=== PATIENT | female | born 1955 | race Caucasian/White ===

== ENCOUNTER 2018-09-11 16:45 | Emergency (ER) | payer BC ==
[2018-09-11 17:11] VITALS: BP 112/56
--- NOTE | 2018-09-11 17:25 | UC ---
Eye Complaint HPI - HPI Summary HPI Summary: 63-year-old woman 63-year-old woman comes in with a chief complaint of upper respiratory tract infection symptoms for 5 days. Today she started with right eye redness and drainage. When she's coughing she is bringing up some pus. Also reports some pus he drainage out of the right eye. She does feel like doesn't itch in the upper part of the eye. Denies any foreign body or trauma to the eye. No shortness of breath. She does have rhinorrhea and postnasal drip and also had a sore throat. Throat hurts more she swallows. - History of Current Complaint Chief Complaint: UCRespiratory Stated Complaint: EYE COMPLAINT Time Seen by Provider: 09/11/18 17:14 Pain Intensity: 0 - Allergies/Home Medications Allergies/Adverse Reactions: Allergies Allergy/AdvReac Type Severity Reaction Status Date / Time hydrocodone Allergy Severe Altered Verified 09/11/18 17:08 Mental Status Penicillins Allergy Severe Rash Verified 09/11/18 17:08 PMH/Surg Hx/FS Hx/Imm Hx Previously Healthy: Yes - Surgical History Surgical History: Yes Surgery Procedure, Year, and Place: THIRD DEGREE UTERINE PROLAPSE REPAIR, CERVIX REMOVED - Family History Known Family History: Positive: Non-Contributory - Social History Alcohol Use: None Substance Use Type: None Smoking Status (MU): Never Smoked Tobacco Review of Systems All Other Systems Reviewed And Are Negative: Yes Constitutional: Positive: Negative Skin: Positive: Negative Eyes: Positive: Drainage, Eye Redness ENT: Positive: Sore Throat, Nasal Discharge, Sinus Congestion Respiratory: Positive: Cough Cardiovascular: Positive: Negative Gastrointestinal: Positive: Negative Motor: Positive: Negative Neurovascular: Positive: Negative Musculoskeletal: Positive: Negative Neurological: Positive: Negative Psychological: Positive: Negative Is Patient Immunocompromised?: No Physical Exam Triage Information Reviewed: Yes Appearance: No Pain Distress, Well-Nourished, Ill-Appearing - MILD Vital Signs: Initial Vital Signs Temp 99.6 F 09/11/18 17:05 Pulse 71 09/11/18 17:05 Resp 18 09/11/18 17:05 BP 112/56 09/11/18 17:05 Pulse Ox 97 09/11/18 17:05 Vital Signs Reviewed: Yes Eyes: Positive: Conjunctiva Inflamed - RT, Discharge - RT, Other: - PERRLA/EOMI NO FB SEEN ON EXAM ENT: Positive: Pharyngeal erythema, Nasal congestion, TMs normal Neck: Positive: Supple Respiratory: Positive: Lungs clear, Normal breath sounds, No respiratory distress Cardiovascular: Positive: RRR Musculoskeletal Exam: Normal Musculoskeletal: Positive: Strength Intact, ROM Intact Neurological Exam: Normal Neurological: Positive: Alert, Muscle Tone Normal Psychological Exam: Normal Psychological: Positive: Age Appropriate Behavior Skin Exam: Normal Eye Complaint Course/Dx - Course Course Of Treatment: DISCUSSED VIRAL VERSES BACTERIAL INFECTION AND THE ROLE OF ANTIBIOTICS. THE PATIENT PREFERS TO BE ON ANTIBIOTICS AT THIS TIME. - Differential Dx/Diagnosis Provider Diagnosis: Right conjunctivitis, Upper respiratory infection Discharge - Sign-Out/Discharge Documenting (check all that apply): Patient Departure All imaging exams completed and their final reports reviewed: No Studies - Discharge Plan Condition: Stable Disposition: HOME Prescriptions: Amoxicillin PO (*) [Amoxicillin 875 MG (*)] 875 mg PO BID #20 tab Tobramycin 0.3% OPHTH.BHARGAV* 1 drop RIGHT EYE Q4H #1 btl Patient Education Materials: Upper Respiratory Infection (ED), Conjunctivitis ( ED) Forms: *Work Release Referrals: [facility] [Outside] [facility] [Provider Group] Additional Instructions: FOLLOW UP WITH OPHTHALMOLOGY AND/OR YOUR DOCTOR IF NOT COMPLETELY IMPROVED. GET RECHECKED SOONER IF YOUR CONDITION WORSENS OR ANY QUESTIONS OR CONCERNS. - Billing Disposition and Condition Condition: STABLE Disposition: Home
== END 2018-09-11 17:34 | disposition home or self-care (01) ==
LOC: UCEAST 16:45
DX: H10.9 Unspecified conjunctivitis (principal); J06.9 Acute upper respiratory infection, unspecified; Z88.0 Allergy status to penicillin
CPT/HCPCS: 99202; G0463

== ENCOUNTER 2018-10-08 14:00 | Emergency (ER) | payer BC ==
[2018-10-08 14:12] VITALS: BP 108/66
--- NOTE | 2018-10-08 14:36 | UC ---
Throat Pain/Nasal Fabricio HPI - HPI Summary HPI Summary: Almost 6 week hx f sore throat, like razor blades, which ahs not responded to use of amoxicillin and warm water and salt gargling. Feels fatigued, but this predated the onset of the sore throat. No fever, cough, headache or hx of reflux. Had profuse watery stool one week ago which has decreased over the week. Nausea and one episode of emesis last week. Yesterday took imodium with effect, and has one watery stool today. - History of Current Complaint Chief Complaint: UCRespiratory Stated Complaint: SORE THROAT DIARRHEA Time Seen by Provider: 10/08/18 14:35 Hx Obtained From: Patient ?: No Onset/Duration: Gradual Onset, Lasting Weeks Severity: Moderate Pain Intensity: 10 Cough: None Associated Signs & Symptoms: Positive: Dysphagia, Hoarseness - has resolved. - Epiglottits Risk Factors Epiglottis Risk Factors: Negative - Allergies/Home Medications Allergies/Adverse Reactions: Allergies Allergy/AdvReac Type Severity Reaction Status Date / Time hydrocodone Allergy Severe Altered Verified 10/08/18 14:12 Mental Status Penicillins Allergy Severe Rash Verified 10/08/18 14:12 Home Medications: Home Medications NK [No Home Medications Reported] 10/08/18 [History Confirmed 10/08/18] PMH/Surg Hx/FS Hx/Imm Hx Previously Healthy: Yes - no regular medical care, no illnesses. 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 Negative: Dental Pain, Ear Ache, Nasal Discharge, Sinus Congestion Respiratory: Negative: Shortness Of Breath, Cough Gastrointestinal: Positive: Diarrhea Genitourinary: Positive: Negative, Other - hx of recurrent uterine prolapse. Motor: Positive: Negative Neurovascular: Positive: Negative Musculoskeletal: Positive: Negative Neurological: Positive: Negative Psychological: Positive: Negative Physical Exam Triage Information Reviewed: Yes Appearance: Well-Appearing, Pain Distress - mild Vital Signs: Initial Vital Signs Temp 98.1 F 10/08/18 14:07 Pulse 71 10/08/18 14:07 Resp 18 10/08/18 14:07 BP 108/66 10/08/18 14:07 Pulse Ox 98 10/08/18 14:07 Eyes: Positive: Conjunctiva Clear ENT: Positive: Pharyngeal erythema - mild erythema of soft palate. No tonsillar enlargement. Neck: Positive: Supple, Nontender, No Lymphadenopathy Respiratory: Positive: Lungs clear, Normal breath sounds Cardiovascular: Positive: RRR, No Murmur Musculoskeletal Exam: Normal Neurological: Positive: Alert, Muscle Tone Normal Psychological Exam: Normal Skin Exam: Normal Throat Pain/Nasal Course/Dx - Course Course Of Treatment: Continue symptomatic treatment. Suggested trial of antihstamines, followed by trial of acid in home nanny to rule out silent reflux. Will refer to ENT given persistence. - Differential Dx/Diagnosis Differential Diagnosis/HQI/PQRI: Laryngitis, Pharyngitis, Tonsillitis, URI Provider Diagnosis: Pharyngitis, Diarrhea Discharge - Sign-Out/Discharge Documenting (check all that apply): Patient Departure All imaging exams completed and their final reports reviewed: No Studies - Discharge Plan Condition: Stable Disposition: HOME Patient Education Materials: Pharyngitis (ED) Referrals: No Primary Care Phys,NOPCP [Primary Care Provider] - Moris Paulson MD [Medical Doctor] - Additional Instructions: Your sore throat could be due to allergies: Try an antihistamine daily such as loratidine 10mg or fexofenadine 180mg daily. You could use flonase spray 2 sprays to both nostrils once daiy. If not effective, you could try an acid in home nanny for possible silent reflux, I suggest either over the counter prilosec 20mg once daily for 1 to 2 weeks to assess effect. If pain persists, I suggest evaluation by an ENT; referral given. - Billing Disposition and Condition Condition: STABLE Disposition: Home
== END 2018-10-08 15:10 | disposition home or self-care (01) ==
LOC: UCEAST 14:00
DX: J06.9 Acute upper respiratory infection, unspecified (principal); R19.7 Diarrhea, unspecified; Z88.0 Allergy status to penicillin
CPT/HCPCS: 99211; G0463